=== PATIENT | female | born 1965 | race Caucasian/White ===

== ENCOUNTER → 2017-09-30 | Outpatient (CLI) | payer BC ==
[2017-09-30 19:49] LABS: Cholesterol 272 mg/dL (<200); HDL Cholesterol 60 mg/dL (40-60); LDL Cholesterol,Calculated 181 mg/dL (0-99); Triglycerides 153 mg/dL (<150)
== END | disposition home or self-care (01) ==
LOC: MMGSC 09:27
PROVIDERS: ATTEND Family Medicine
DX: E78.00 Pure hypercholesterolemia, unspecified (principal); E55.9 Vitamin D deficiency, unspecified
CPT/HCPCS: 36415; 80061; 82306

== ENCOUNTER → 2017-10-07 | Outpatient (CLI) | payer BC | END | disposition home or self-care (01) | LOC: MMGSC 16:41 | PROVIDERS: ATTEND Family Medicine | DX: N39.0 Urinary tract infection, site not specified (principal) | CPT/HCPCS: 87086 ==